=== PATIENT | female | born 1990 | race Caucasian/White ===

== ENCOUNTER 2021-09-16 00:39 | Emergency (ER) | payer OTHER ==
[~2021-09-16] VITALS: Ht 160 cm; Wt 68.0 kg
[2021-09-16 00:39] VITALS: BP_SYST 129
[2021-09-16 01:45] LABS: BASOPHILS # (AUTO) 0.1 K/uL (0.0-0.2); BASOPHILS % (AUTO) 0.7 % (0.0-2.0); EOSINOPHILS # (AUTO) 0.1 K/uL (0.0-0.4); EOSINOPHILS % (AUTO) 1.3 % (0.0-4.0); HEMATOCRIT 37.2 % (36-48); HEMOGLOBIN 11.9 g/dL (12.0-16.0); LYMPHOCYTES # (AUTO) 2.6 K/uL (1.0-5.5); LYMPHOCYTES % (AUTO) 32.4 % (20.5-51.5); MEAN CORPUSCULAR HEMOGLOBIN 27 pg (27-31); MEAN CORPUSCULAR HGB CONC 32 % (32-36); MEAN CORPUSCULAR VOLUME 84 fL (79.0-98.0); MONOCYTES # (AUTO) 0.6 K/uL (0.0-1.0); MONOCYTES % (AUTO) 7.4 % (1.7-9.3); NEUTROPHILS # (AUTO) 4.7 K/uL (1.8-7.7); NEUTROPHILS % (AUTO) 58.2 % (40.0-70.0); PLATELET COUNT (AUTO) 285 K/uL (130-430); RED BLOOD CELL COUNT(AUTO) 4.45 MIL/uL (4.2-6.2); RED CELL DISTRIBUTION WIDTH 13.9 % (9.0-15.0)
[2021-09-16 01:46] LABS: CALCIUM 8.5 mg/dL (8.4-11.0); CREATININE 0.77 mg/dL (0.55-1.30); POTASSIUM 3.8 mmol/L (3.5-5.1)
[2021-09-16 01:54] LABS: ALBUMIN 3.9 g/dL (3.4-4.8); TOTAL BILIRUBIN 0.2 mg/dL (0.0-1.0)
[2021-09-16 03:01] VITALS: BP_SYST 112
== END 2021-09-16 03:02 | disposition home or self-care (01) ==
LOC: SED 00:39
DX: R10.11 Right upper quadrant pain (principal); R11.2 Nausea with vomiting, unspecified
CPT/HCPCS: 36415; 76705; 80053; 83690; 84702; 85025; 99284

== ENCOUNTER 2022-03-05 22:42 | Emergency (ER) | payer OTHER ==
[~2022-03-05] VITALS: Ht 162.6 cm; Wt 77.1 kg
[2022-03-05 22:47] VITALS: BP_SYST 125
--- NOTE | 2022-03-05 23:07 | NUR ---
Patient triaged and placed in waiting room. VSS and patient appears in no acute distress at this time. Accompanied by self , awaiting available bed, and MD notified of need for MSE.
--- NOTE | 2022-03-06 00:43 | NUR ---
Per dispatcher clerk, pt LWBS.
== END 2022-03-06 00:43 | disposition left against medical advice (07) ==
LOC: SED 22:42
DX: R10.2 Pelvic and perineal pain (principal); Z53.21 Procedure and treatment not carried out due to patient leaving prior to being seen by health care provider

== ENCOUNTER 2022-03-06 22:33 | Emergency (ER) | payer OTHER ==
[~2022-03-06] VITALS: Ht 162.6 cm; Wt 77.1 kg
[2022-03-06 22:42] VITALS: BP_SYST 130
--- NOTE | 2022-03-06 22:45 | NUR ---
First contat with pt, pt has cc complain of vaginal pain. Pt states that pain has been present for the past 4 days and has been getting progressively worst. Pt states that it is uncomfortable to sit but has no issues with burning or frequency. Pt endorses no allergy and and has not changed anything in her routine as of recent. Pt currently laying quietly, awaiting evaluation and further orders.
--- NOTE | 2022-03-06 22:45 | NUR ---
Patient to ER bed 06 to gown for evaluation. Side rails up.
[2022-03-06 23:25] VITALS: BP_SYST 124
--- NOTE | 2022-03-07 00:02 | NUR ---
Vaginal exa performed by Provider with RN live games dealer.
== END 2022-03-07 01:00 | disposition home or self-care (01) ==
LOC: SED 22:33
DX: S30.814A Abrasion of vagina and vulva, initial encounter (principal); N75.0 Cyst of Bartholin's gland; X58.XXXA Exposure to other specified factors, initial encounter; Y93.89 Activity, other specified; Y92.89 Other specified places as the place of occurrence of the external cause; Y99.8 Other external cause status
CPT/HCPCS: 81025; 99284

== ENCOUNTER 2024-05-13 16:58 | Emergency (ER) | payer OTHER ==
[~2024-05-13] VITALS: Ht 162.6 cm; Wt 81.2 kg
[2024-05-13 17:37] VITALS: PULSE 101; RESP 16; TEMP 97.4; O2SAT 95
[2024-05-13 19:21] LABS: BASOPHILS # (AUTO) 0.1 K/uL (0.0-0.2); BASOPHILS % (AUTO) 0.8 % (0.0-2.0); EOSINOPHILS # (AUTO) 0.1 K/uL (0.0-0.4); EOSINOPHILS % (AUTO) 1.6 % (0.0-4.0); HEMATOCRIT 39.3 % (36-48); LYMPHOCYTES # (AUTO) 2.8 K/uL (1.0-5.5); LYMPHOCYTES % (AUTO) 30.3 % (20.5-51.5); MEAN CORPUSCULAR HEMOGLOBIN 27 pg (27-31); MEAN CORPUSCULAR HGB CONC 33 % (32-36); MEAN CORPUSCULAR VOLUME 81 fL (79.0-98.0); MONOCYTES # (AUTO) 0.7 K/uL (0.0-1.0); MONOCYTES % (AUTO) 7.9 % (1.7-9.3); NEUTROPHILS # (AUTO) 5.5 K/uL (1.8-7.7); NEUTROPHILS % (AUTO) 59.4 % (40.0-70.0); PLATELET COUNT (AUTO) 264 K/uL (130-430); RED BLOOD CELL COUNT(AUTO) 4.85 MIL/uL (4.2-6.2); RED CELL DISTRIBUTION WIDTH 13.2 % (9.0-15.0); WHITE BLOOD COUNT (AUTO) 9.3 K/uL (4.8-10.8)
[2024-05-13 19:45] LABS: CALCIUM 8.9 mg/dL (8.4-11.0); CREATININE 0.81 mg/dL (0.55-1.30); POTASSIUM 3.8 mmol/L (3.5-5.1); TOTAL BILIRUBIN 0.2 mg/dL (0.0-1.0); TOTAL PROTEIN, SERUM 8.2 g/dL (6.4-8.3)
[2024-05-13] MEDS ORDERED: OFLO5DRO6 LEFT EYE (20:30)
[2024-05-13] MEDS ORDERED: NEPA3DRO OP (20:30)
[2024-05-13 21:00] VITALS: PULSE 101; RESP 16; TEMP 97.4; O2SAT 95
== END 2024-05-13 21:00 | disposition home or self-care (01) ==
LOC: SED 16:58
DX: H10.32 Unspecified acute conjunctivitis, left eye (principal); R51.9 Headache, unspecified; Z79.899 Other long term (current) drug therapy
CPT/HCPCS: 99285; 70481; 80053; 85025; 87040; 36415; Q9967